=== PATIENT | male | born 1995 | race Caucasian/White ===

== ENCOUNTER 2020-04-06 11:56 | Emergency (ER) | payer SELFPAY ==
--- NOTE | 2020-04-06 14:22 | EDM.PDOC ---
ED HPI GENERAL MEDICAL PROBLEM - General Chief Complaint: Skin Complaint Stated Complaint: INTENSE INCHING Time Seen by Provider: 04/06/20 14:00 Source of Information: Reports: Patient History Limitations: Reports: No Limitations - History of Present Illness INITIAL COMMENTS - FREE TEXT/NARRATIVE: This is a 24-year-old male who presents with a pruritic rash. He was swimming in the [place] earlier this morning with several friends. They have all developed the same symptoms. He has scattered, small red dots all over his trunk and extremities below the neck. These are quite pruritic. He has no allergies. - Related Data Allergies Allergy/AdvReac Type Severity Reaction Status Date / Time No Known Allergies Allergy Verified 04/06/20 13:22 Home Meds: Home Meds Sertraline [Zoloft] 50 mg PO DAILY 04/06/20 [History] Past Medical History Respiratory History: Reports: Asthma - Past Surgical History HEENT Surgical History: Reports: Other (See Below) Other HEENT Surgeries/Procedures: tear duct surgery Social & Family History - Tobacco Use Smoking Status *Q: Never Smoker - Caffeine Use Caffeine Use: Reports: None - Alcohol Use Days Per Week of Alcohol Use: 5 Number of Drinks Per Day: 3 Total Drinks Per Week: 15 - Recreational Drug Use Recreational Drug Use: No ED ROS GENERAL - Review of Systems Review Of Systems: See Below Constitutional: Reports: No Symptoms HEENT: Reports: No Symptoms Respiratory: Reports: No Symptoms Cardiovascular: Reports: No Symptoms Endocrine: Reports: No Symptoms GI/Abdominal: Reports: No Symptoms : Reports: No Symptoms Musculoskeletal: Reports: No Symptoms Skin: Reports: Rash Neurological: Reports: No Symptoms Psychiatric: Reports: No Symptoms Hematologic/Lymphatic: Reports: No Symptoms Immunologic: Reports: No Symptoms ED EXAM, SKIN/RASH Exam: See Below Exam Limited By: No Limitations General Appearance: Alert, No Apparent Distress Ears: Normal External Exam Nose: Normal Inspection Throat/Mouth: Normal Inspection Head: Atraumatic, Normocephalic Neck: Normal Inspection Respiratory/Chest: Lungs Clear Cardiovascular: Regular Rate, Rhythm GI/Abdominal: Soft, No Distention Back Exam: Normal Inspection Extremities: Normal Inspection Neurological: Alert, Oriented Psychiatric: Normal Affect, Normal Mood Skin: Rash (Scattered, small (< 0.5 cm) red papules on the extremities and trunk below the neck. No mucosal involvement.) Course - Vital Signs Last Recorded V/S: Last Vital Signs Temp 35.5 C L 04/06/20 13:24 Pulse 79 04/06/20 13:24 Resp 18 04/06/20 13:24 BP 131/83 04/06/20 13:24 Pulse Ox 96 04/06/20 13:24 - Re-Assessments/Exams Free Text/Narrative Re-Assessment/Exam: This is a 24-year-old male who presents with a scattered pruritic rash of the extremities and trunk. He is accompanied by 2 friends with the same symptoms after they were swimming earlier today. This is consistent with a swimmer's itch. We will treat him symptomatically with antihistamines and corticosteroid cream for any localized areas that have more significant involvement. He will return for worsening. 04/06/20 20:14 Departure - Departure Time of Disposition: 14:12 Disposition: Home, Self-Care 01 Clinical Impression: Pruritic rash - Discharge Information Instructions: Swimmer's Itch Referrals: PCP,None [Primary Care Provider] - Forms: ED Department Discharge Additional Instructions: As discussed, please take an anti-histamine for your rash Sepsis Event Note (ED) - Evaluation Sepsis Screening Result: No Definite Risk - Focused Exam Vital Signs: Vital Signs Temp Pulse Resp BP Pulse Ox 04/06/20 13:24 35.5 C L 79 18 131/83 96
== END 2020-04-06 14:33 | disposition home or self-care (01) ==
LOC: JP.ED 11:56
DX: L29.9 Pruritus, unspecified (principal); Z79.899 Other long term (current) drug therapy
CPT/HCPCS: 99282